=== PATIENT | female | born 1995 | race Caucasian/White ===

== ENCOUNTER 2017-03-29 19:30 | Emergency (ER) | payer MEDICAID ==
[2017-03-29] MEDS ORDERED: NS 1,000 ML IV ONE (19:59)
[2017-03-29 20:37] LABS: % IMMATURE GRANULYOCYTES 0.1 % (0.0-1.1); ABSOLUTE IMMATURE GRANULOCYTES 0.01 10^3/uL (0.00-0.10); ADD DIFF? NO; ADD MORPH? NO; ADD SCAN? NO; ATYPICAL LYMPHOCYTE FLAG 40 (0-99); FRAGMENT RBC FLAG 0 (0-99); HEMATOCRIT 40.6 % (38.0-47.0); HEMOGLOBIN 13.8 g/dL (12.6-16.3); LEFT SHIFT FLG 0 (0-99); LIPEMIA HEMOLYSIS FLAG 90 (0-99); MEAN CELL HEMOGLOBIN 31.9 pg (27.9-34.1); MEAN PLATELET VOLUME 10.3 fL (8.7-11.7); PLATELET CLUMPS FLAG 0 (0-99); PLATELET COUNT 237 10^3/uL (150-400); RED BLOOD CELL COUNT 4.32 10^6/uL (4.18-5.33); RED CELL DISTRIBUTION WIDTH 12.6 % (11.5-15.2)
[2017-03-29] MEDS ORDERED: ONDANSETRON 4 MG/2 ML VIAL IVP ONE (20:50)
[2017-03-29] MEDS ORDERED: LORazepam 2 MG/ML INJ IVP ONE (20:50)
[2017-03-29 21:10] LABS: ANION GAP 13 mEq/L (8-16); CALCIUM 10.1 mg/dL (8.5-10.4); CARBON DIOXIDE 24 mEq/l (22-31); CHLORIDE 98 mEq/L (97-110); CREATININE 0.7 mg/dL (0.6-1.0); GLOMERULAR FILTRATION RATE > 60; GLUCOSE 81 mg/dL (70-100); POTASSIUM 4.1 mEq/L (3.5-5.2); SODIUM 135 mEq/L (134-144)
--- NOTE | 2017-03-29 21:58 | EDPHY ---
H & P Time Seen by Provider: 03/29/17 19:45 HPI/ROS: CHIEF COMPLAINT: Nausea, vomiting HISTORY OF PRESENT ILLNESS: 21-year-old female presents to the emergency department with multiple episodes of nausea and vomiting over last 6 days. She states that whenever she tries to eat or drink something she feels sick to her stomach and vomits. She does have a history of anorexia and was recently discharged on her own accord from intensive outpatient program. She was advised by her primary care provider to follow up with Gastroenterology, however came to the emergency department today because she noted some pink tinged emesis and was concerned about blood. Denies any other abdominal pain. She does smoke marijuana daily to help her sleep. She denies any other illicit drug use. Denies chest pain or difficulty breathing. Denies back pain. Denies urinary symptoms. Her last menstrual period was 2 years ago, she has an IUD. She denies . REVIEW OF SYSTEMS: Constitutional: No fever, no chills. Eyes: No double or blurry vision. ENT: No sore throat. Respiratory: No cough, no shortness of breath. Cardiac: No chest pain. Gastrointestinal: Vomiting as above. No abdominal pain or diarrhea Genitourinary: No dysuria. Musculoskeletal: No neck or back pain. Skin: No rashes. Neurological: No headache. Past Medical/Surgical History: Anorexia Social History: Single Smoking Status: Never smoked Physical Exam: General Appearance: Alert, no distress. Appears well. Eyes: Pupils equal and round. Extraocular motions are all intact. ENT: Mouth: Mucous membranes moist. Respiratory: No wheezing, rhonchi, or rales, lungs are clear to auscultation. Cardiovascular: Regular rate and rhythm. Gastrointestinal: Abdomen is soft and nontender, no masses, no rebound or guarding, bowel sounds normal. Neurological: Alert and oriented x 3, cranial nerves II through XII grossly intact Skin: Warm and dry, no rashes. Musculoskeletal: Nontender to palpate along the cervical, thoracic or lumbar spine. Neck is supple. Extremities: Full range of motion and no peripheral edema. Psychiatric: Patient is oriented X 3, there is no agitation. Constitutional: Initial Vital Signs Temperature (C) 37.1 C 03/29/17 19:41 Heart Rate 65 03/29/17 19:41 Respiratory Rate 18 03/29/17 19:41 Blood Pressure 100/67 03/29/17 19:41 O2 Sat (%) 96 03/29/17 19:41 O2 Delivery Mode Room Air Allergies/Adverse Reactions: renita Allergy (Verified 03/29/17 19:41) Home Medications: Medication Instructions Recorded Homeopathic Drugs 10/21/09 Ondansetron Odt [Zofran Odt] 4 mg PO Q4PRN PRN #20 tab 02/25/15 Trileptal 02/25/15 Wellbutrin 75mg (RX) 02/25/15 levOFLOXACIN [Levaquin] 500 mg PO DAILY #10 tab 02/25/15 Medical Decision Making ED Course/Re-evaluation: 21-year-old female presents to the emergency department with multiple episodes of nausea vomiting. Clinically appears well. I do not think patient needs admission to the hospital. Laboratory studies including CBC and chemistries were all within normal limits. The patient received IV normal saline as well as IV Zofran and IV Ativan. Patient was feeling much better. She is comfortable being discharged home. She was tolerating p.o. fluids. Differential Diagnosis: Including but not limited to dehydration, gastritis, gastroenteritis, GERD, peptic ulcer disease, acute appendicitis, urinary tract infection, pyelonephritis - Data Points Laboratory Results: Laboratory Results 03/29/17 20:30 03/29/17 20:30 03/29/17 03/29/17 03/29/17 20:30 20:30 20:30 WBC 7.01 10^3/uL 10^3/uL (3.80-9.50) RBC 4.32 10^6/uL 10^6/uL (4.18-5.33) Hgb 13.8 g/dL g/dL (12.6-16.3) Hct 40.6 % % (38.0-47.0) MCV 94.0 fL fL (81.5-99.8) MCH 31.9 pg pg (27.9-34.1) MCHC 34.0 g/dL g/dL (32.4-36.7) RDW 12.6 % % (11.5-15.2) Plt Count 237 10^3/uL 10^3/uL (150-400) MPV 10.3 fL fL (8.7-11.7) Neut % (Auto) 51.2 % % (39.3-74.2) Lymph % (Auto) 38.8 % % (15.0-45.0) [place] % (Auto) 8.3 % % (4.5-13.0) Eos % (Auto) 0.9 % % (0.6-7.6) Baso % (Auto) 0.7 % % (0.3-1.7) Nucleat RBC Rel Count 0.0 % % (0.0-0.2) Absolute Neuts (auto) 3.59 10^3/uL 10^3/uL (1.70-6.50) Absolute Lymphs (auto) 2.72 10^3/uL 10^3/uL (1.00-3.00) Absolute Monos (auto) 0.58 10^3/uL 10^3/uL (0.30-0.80) Absolute Eos (auto) 0.06 10^3/uL 10^3/uL (0.03-0.40) Absolute Basos (auto) 0.05 10^3/uL 10^3/uL (0.02-0.10) Absolute Nucleated RBC 0.00 10^3/uL 10^3/uL (0-0.01) Immature Gran % 0.1 % % (0.0-1.1) Immature Gran # 0.01 10^3/uL 10^3/uL (0.00-0.10) Sodium 135 mEq/L mEq/L (134-144) Potassium 4.1 mEq/L mEq/L (3.5-5.2) Chloride 98 mEq/L mEq/L (97-110) Carbon Dioxide 24 mEq/l mEq/l (22-31) Anion Gap 13 mEq/L mEq/L (8-16) BUN 10 mg/dL mg/dL (7-23) Creatinine 0.7 mg/dL mg/dL (0.6-1.0) Estimated GFR > 60 Glucose 81 mg/dL mg/dL (70-100) Calcium 10.1 mg/dL mg/dL (8.5-10.4) Beta HCG, Qual NEGATIVE Medications Given: Discontinued Medications Sodium Chloride (Ns) 1,000 mls @ 0 mls/hr IV ONCE ONE PRN Reason: Wide Open Stop: 03/29/17 20:00 Last Admin: 03/29/17 20:35 Dose: 1,000 mls Lorazepam (Ativan Injection) 0.5 mg IVP EDNOW ONE Stop: 03/29/17 20:51 Last Admin: 03/29/17 21:00 Dose: 0.5 mg Ondansetron HCl (Zofran) 4 mg IVP EDNOW ONE Stop: 03/29/17 20:51 Last Admin: 03/29/17 21:00 Dose: 4 mg Departure - Departure Disposition: Home, Routine, Self-Care Clinical Impression: Gastritis Qualifiers: Gastritis type: unspecified gastritis Chronicity: acute Gastritis bleeding: presence of bleeding unspecified Qualified Code(s): K29.00 - Acute gastritis without bleeding Condition: Good Instructions: Gastritis (ED) Additional Instructions: Clear liquids and slowly advance diet as tolerated. Return to the emergency department if you develop fever, abdominal pain, or if you feel worse in any way. Referrals: Ana Paula Callahan MD [Medical Doctor] - As per Instructions ([employer] on- call)
[2017-03-29 22:40] VITALS: BP 118/74; PULSE 70; RESP 14; TEMP 98.4; O2SAT 94
== END 2017-03-29 22:39 | disposition home or self-care (01) ==
DX: K29.00 Acute gastritis without bleeding (principal)
CPT/HCPCS: 96374; J2060; J2405

== ENCOUNTER 2017-05-18 08:03 | Emergency (ER) | payer MEDICAID ==
[2017-05-18 08:16] VITALS: TEMP 97.5
[2017-05-18] MEDS ORDERED: ONDANSETRON 4 MG/2 ML VIAL ONE (08:22)
[2017-05-18] MEDS ORDERED: ONDANSETRON 4 MG/2 ML VIAL IVP ONE (08:23)
[2017-05-18] MEDS ORDERED: NS 1,000 ML IV ONE ×2 (08:24→08:54)
[2017-05-18] MEDS ORDERED: METOCLOPRAMIDE 10 MG/2 ML VIAL IVP ONE (08:54)
[2017-05-18] MEDS ORDERED: FAMOTIDINE 20 MG/NACL 50 ML IV ONE (08:54)
--- NOTE | 2017-05-18 09:00 | EDPHY ---
H & P Time Seen by Provider: 05/18/17 08:37 HPI/ROS: Chief complaint. Nausea vomiting, near syncope HPI. 22-year-old female presents emergency department with 2 hour history of nausea vomiting and feeling like she could pass out especially when standing. Better with sitting down. She did not pass out and is not injured. She was seen in our department March, for similar symptoms and then had subsequently had an endoscopy by GI. Biopsies and endoscopy were normal. She had similar symptoms on May 06 but did not seek care. These are typical symptoms for her. No diarrhea. She has mild abdominal discomfort which is normal and chronic for her. No new or different abdominal pain. Slight cough the last couple days with some congestion. No fever. No chest discomfort or trouble breathing. ROS Constitutional. no fever/chills, no weakness Eyes. no problems with vision ENT. no sore throat, no nasal drainage Cardiovascular. no chest pain Respiratory. no shortness of breath, no cough Abdominal. Upper abdominal pain with nausea vomiting . no problems urinating MS. no calf pain/swelling, no neck/back pain, no joint pain Skin. no rash Lymph. no swollen glands Neuro. Near syncope Past Medical/Surgical History: Past medical history significant for chronic bronchitis, anorexia Social History: Single, nonsmoker, no alcohol Smoking Status: Never smoked Physical Exam: General Appearance: Alert well-developed female mild distress vital signs stable Eyes: Pupils equal and round no pallor or injection. ENT, Mouth: Mucous membranes are moist. Respiratory: There are no retractions, lungs are clear to auscultation. Cardiovascular: Regular rate and rhythm. Gastrointestinal: Soft with mild epigastric discomfort. Neurological: Awake and alert, sensory and motor exams grossly normal. Skin: Warm and dry, no rashes. Musculoskeletal: Neck is supple nontender. Extremities symmetrical, full range of motion. Psychiatric: Patient is oriented X 3, there is no agitation.o masses Constitutional: Initial Vital Signs Temperature (C) 36.4 C 05/18/17 08:08 Heart Rate 56 L 05/18/17 08:08 Respiratory Rate 16 05/18/17 08:08 Blood Pressure 116/73 05/18/17 08:08 O2 Sat (%) 100 05/18/17 08:08 O2 Delivery Mode Room Air Allergies/Adverse Reactions: renita Allergy (Verified 05/18/17 08:07) Home Medications: Medication Instructions Recorded Trileptal 02/25/15 Medical Decision Making Procedures: IV normal saline. Reglan and Benadryl IV. Pepcid IV ED Course/Re-evaluation: Re-evaluation 9:35 a.m.. The patient, her mom and I discussed laboratory evaluation, treatment plan including criteria for return importance of follow- up and further evaluation Patient feeling better and will be given ice chips Recheck again at 10:30 a.m.. Patient tolerated ice chips and is drinking maty best. She tells me she feels so much better. No sense that she might pass out or having abdominal pain or nausea. Differential Diagnosis: I think that this is probably gastritis. I considered pancreatitis, dehydration - Data Points Laboratory Results: Laboratory Results 05/18/17 08:23 05/18/17 08:23 05/18/17 05/18/17 05/18/17 08:23 08:23 08:23 WBC 9.86 10^3/uL H 10^3/uL (3.80-9.50) RBC 4.17 10^6/uL L 10^6/uL (4.18-5.33) Hgb 13.2 g/dL g/dL (12.6-16.3) Hct 39.6 % % (38.0-47.0) MCV 95.0 fL fL (81.5-99.8) MCH 31.7 pg pg (27.9-34.1) MCHC 33.3 g/dL g/dL (32.4-36.7) RDW 12.6 % % (11.5-15.2) Plt Count 203 10^3/uL 10^3/uL (150-400) MPV 10.6 fL fL (8.7-11.7) Neut % (Auto) 69.9 % % (39.3-74.2) Lymph % (Auto) 20.8 % % (15.0-45.0) [place] % (Auto) 6.5 % % (4.5-13.0) Eos % (Auto) 1.7 % % (0.6-7.6) Baso % (Auto) 0.8 % % (0.3-1.7) Nucleat RBC Rel Count 0.0 % % (0.0-0.2) Absolute Neuts (auto) 6.89 10^3/uL H 10^3/uL (1.70-6.50) Absolute Lymphs (auto) 2.05 10^3/uL 10^3/uL (1.00-3.00) Absolute Monos (auto) 0.64 10^3/uL 10^3/uL (0.30-0.80) Absolute Eos (auto) 0.17 10^3/uL 10^3/uL (0.03-0.40) Absolute Basos (auto) 0.08 10^3/uL 10^3/uL (0.02-0.10) Absolute Nucleated RBC 0.00 10^3/uL 10^3/uL (0-0.01) Immature Gran % 0.3 % % (0.0-1.1) Immature Gran # 0.03 10^3/uL 10^3/uL (0.00-0.10) Sodium 136 mEq/L mEq/L (134-144) Potassium 4.2 mEq/L mEq/L (3.5-5.2) Chloride 99 mEq/L mEq/L (97-110) Carbon Dioxide 23 mEq/l mEq/l (22-31) Anion Gap 14 mEq/L mEq/L (8-16) BUN 13 mg/dL mg/dL (7-23) Creatinine 0.7 mg/dL mg/dL (0.6-1.0) Estimated GFR > 60 Glucose 88 mg/dL mg/dL (70-100) Calcium 9.4 mg/dL mg/dL (8.5-10.4) Lipase 180 IU/L IU/L (23-300) Beta HCG, Qual NEGATIVE Medications Given: Discontinued Medications Diphenhydramine HCl (Benadryl Injection) 12.5 mg IVP EDNOW ONE Stop: 05/18/17 08:57 Last Admin: 05/18/17 09:15 Dose: 12.5 mg Sodium Chloride (Ns) 1,000 mls @ 0 mls/hr IV ONCE ONE PRN Reason: Wide Open Stop: 05/18/17 08:25 Last Admin: 05/18/17 08:27 Dose: 1,000 mls Sodium Chloride (Ns) 1,000 mls @ 0 mls/hr IV EDNOW ONE; Wide Open PRN Reason: Protocol Stop: 05/18/17 08:55 Last Admin: 05/18/17 09:18 Dose: 1,000 mls Famotidine/Sodium Chloride (Pepcid 20 Mg (Premix)) 50 mls @ 200 mls/hr IV EDNOW ONE Stop: 05/18/17 09:08 Last Admin: 05/18/17 09:16 Dose: 50 mls Metoclopramide HCl (Reglan Injection) 5 mg IVP EDNOW ONE Stop: 05/18/17 08:55 Last Admin: 05/18/17 09:14 Dose: 5 mg Ondansetron HCl (Zofran) 4 mg IVP EDNOW ONE Stop: 05/18/17 08:24 Last Admin: 05/18/17 08:25 Dose: 4 mg Departure - Departure Disposition: Home, Routine, Self-Care Clinical Impression: Gastritis Qualifiers: Gastritis type: unspecified gastritis Chronicity: acute Gastritis bleeding: without bleeding Qualified Code(s): K29.00 - Acute gastritis without bleeding Condition: Good Instructions: Gastritis (ED) Additional Instructions: Try Pepcid, Tagamet, Prilosec [id number]. Frequent, small sips fluids while nauseated. Gradual diet advancement. Return for worsening symptoms. Re- evaluation in 2-3 days if not improving Referrals: DR IRA [Other] - As per Instructions Stand Alone Forms: Work Excuse
[2017-05-18 09:02] LABS: % IMMATURE GRANULYOCYTES 0.3 % (0.0-1.1); ABSOLUTE IMMATURE GRANULOCYTES 0.03 10^3/uL (0.00-0.10); ADD DIFF? NO; ADD MORPH? NO; ADD SCAN? NO; ATYPICAL LYMPHOCYTE FLAG 20 (0-99); FRAGMENT RBC FLAG 0 (0-99); HEMATOCRIT 39.6 % (38.0-47.0); HEMOGLOBIN 13.2 g/dL (12.6-16.3); LEFT SHIFT FLG 0 (0-99); LIPEMIA HEMOLYSIS FLAG 80 (0-99); MEAN CELL HEMOGLOBIN 31.7 pg (27.9-34.1); MEAN CELL HEMOGLOBIN CONCENTR. 33.3 g/dL (32.4-36.7); MEAN PLATELET VOLUME 10.6 fL (8.7-11.7); PLATELET CLUMPS FLAG 10 (0-99); PLATELET COUNT 203 10^3/uL (150-400); RED BLOOD CELL COUNT 4.17 10^6/uL (4.18-5.33); RED CELL DISTRIBUTION WIDTH 12.6 % (11.5-15.2)
[2017-05-18 09:12] LABS: ANION GAP 14 mEq/L (8-16); CALCIUM 9.4 mg/dL (8.5-10.4); CARBON DIOXIDE 23 mEq/l (22-31); CHLORIDE 99 mEq/L (97-110); CREATININE 0.7 mg/dL (0.6-1.0); GLOMERULAR FILTRATION RATE > 60; GLUCOSE 88 mg/dL (70-100); POTASSIUM 4.2 mEq/L (3.5-5.2); SODIUM 136 mEq/L (134-144)
[2017-05-18 10:44] VITALS: BP 112/67; PULSE 51; RESP 18; O2SAT 98
== END 2017-05-18 10:44 | disposition home or self-care (01) ==
DX: K29.00 Acute gastritis without bleeding (principal); E86.9 Volume depletion, unspecified
CPT/HCPCS: 96374; J1200; J2405; J2765